=== PATIENT | male | born 1990 | race Caucasian/White ===

== ENCOUNTER 2018-08-31 21:29 | Emergency (ER) | payer OTHER ==
[~2018-08-31] VITALS: Ht 172.7 cm; Wt 109.1 kg
[~2018-08-31 21:29] MED LIST: NOCURR; TYL3 PO
[2018-08-31 23:07] VITALS: BP 134/64
== END 2018-09-01 00:02 | disposition home or self-care (01) ==
LOC: EMS 21:30
DX: L03.113 Cellulitis of right upper limb (principal); Z88.0 Allergy status to penicillin

== ENCOUNTER 2021-11-25 17:44 | Emergency (ER) | payer OTHER ==
[~2021-11-25] VITALS: Ht 170.2 cm; Wt 109.1 kg
[2021-11-25] MEDS ORDERED: DIPH-543 PO (17:56)
[2021-11-25] MEDS ORDERED: DIPH-1080 PO (18:32)
[2021-11-25] MEDS ORDERED: CLOT15CR23 TP (18:32)
[2021-11-25] MEDS ORDERED: FAMO20 PO (19:46)
[2021-11-25] MEDS ORDERED: DIPH50 PO (19:46)
[2021-11-25 19:50] VITALS: BP 132/75
== END 2021-11-25 19:52 | disposition home or self-care (01) ==
LOC: EMS 17:44
DX: T78.1XXA Other adverse food reactions, not elsewhere classified, initial encounter (principal); Z88.0 Allergy status to penicillin; Z79.899 Other long term (current) drug therapy; X58.XXXA Exposure to other specified factors, initial encounter
CPT/HCPCS: 99282; Z7502

== ENCOUNTER 2022-10-16 20:42 | Emergency (ER) | payer OTHER ==
[~2022-10-16] VITALS: Ht 172.7 cm; Wt 109.0 kg
[~2022-10-16 20:42] MED LIST changes: +CLOT15CR23 TP; +DIPH-1080 PO; +DIPH50 PO; +FAMO20 PO; -NOCURR; -TYL3 PO
[2022-10-16 20:43] VITALS: TEMP 98.2
[2022-10-16 21:07] VITALS: BP 149/89; PULSE 80; RESP 18
[2022-10-16] MEDS ORDERED: DOXY-354 PO (21:34)
== END 2022-10-16 21:45 | disposition home or self-care (01) ==
LOC: EMS 20:43
DX: L03.031 Cellulitis of right toe (principal); Z88.0 Allergy status to penicillin
CPT/HCPCS: 99283; Z7502